=== PATIENT | female | born 1985 | race Caucasian/White ===

== ENCOUNTER 2017-05-02 04:02 | Emergency (ER) | payer OTHER ==
[~2017-05-02] VITALS: Ht 167.6 cm; Wt 61.2 kg
[~2017-05-02 04:02] MED LIST: BIRTH CONTROL; CYCL10 PO; HYDACE5 PO; IBUP600 PO; MULVITMIND PO
== END 2017-05-02 06:20 | disposition home or self-care (01) ==
LOC: ER 04:02
DX: T74.21XA Adult sexual abuse, confirmed, initial encounter (principal); F17.210 Nicotine dependence, cigarettes, uncomplicated
CPT/HCPCS: 96372; 99285; J0696

== ENCOUNTER → 2019-03-10 | Outpatient (CLI) | payer BC ==
[2019-03-11 19:06] LABS: CHLAMYDIA TRACHOMATIS, NAA Negative (Negative); NEISSERIA GONORRHOEAE, NAA Negative (Negative)
[2019-03-14 16:06] LABS: HPV 16 Negative (Negative); HPV 18 Negative (Negative); HPV OTHER HR TYPES Negative (Negative)
== END ==
LOC: LAB SHORT 10:13 → LAB 10:13
PROVIDERS: Registered Nurse Community Health
DX: Z36.89 Encounter for other specified antenatal screening (principal)
CPT/HCPCS: 87491; 87591; 87624; G0123

== ENCOUNTER 2019-09-25 13:06 | Inpatient (IN) | payer BC, OTHER ==
[~2019-09-25] VITALS: Ht 170.2 cm; Wt 90.0 kg
[2019-09-25] MEDS ORDERED: BUSP5 PO (17:10)
[2019-09-25] MEDS ORDERED: PRENATAL TABLE1 EAC2 PO (17:10)
[2019-09-25 17:55] LABS: BASOPHILS ABSOLUTE AUTO 0.04 K/mm3 (0.00-0.23); BASOPHILS PERCENT AUTO 0 % (0-2); EOSINOPHILS ABSOLUTE AUTO 0.01 K/mm3 (0.00-0.68); EOSINOPHILS PERCENT AUTO 0 % (0-6); Hematocrit 34.7 % (33.0-51.0); Hemoglobin 12.1 g/dL (11.5-16.0); IMMATURE GRAN ABSOLUTE AUTO 0.13 K/mm3 (0.00-0.10); IMMATURE GRAN PERCENT AUTO 1 % (0-1); LYMPHOCYTES ABSOLUTE AUTO 0.96 K/mm3 (0.84-5.20); LYMPHOCYTES PERCENT AUTO 7 % (21-46); MONOCYTES ABSOLUTE AUTO 0.37 K/mm3 (0.16-1.47); MONOCYTES PERCENT AUTO 3 % (4-13); Mean Corpuscular HGB 31.1 pg (26.0-34.0); Mean Corpuscular HGB Conc 34.9 g/dL (31.5-36.5); Mean Corpuscular Volume 89 fL (80-100); Mean Platelet Volume 10.1 fL (9.1-12.4); NEUTROPHILS ABSOLUTE AUTO 12.98 K/mm3 (1.96-9.15); NEUTROPHILS PERCENT AUTO 90 % (41-73); Platelet Count 173 K/mm3 (150-400); RDW Coefficient Variation 12.4 % (11.7-14.2); RDW Standard Deviation 40.1 fL (35.1-46.3); Red Blood Cell Count 3.89 M/mm3 (3.80-5.20); White Blood Cell Count 14.49 K/mm3 (4.00-11.30)
--- NOTE | 2019-09-26 00:03 | NUR ---
RT ON STANDBY FOR , BABY BORN WITH STRONG CRY, NO RESP DISTRESS. RT DISMISSED BY MARILEE QUILES.
[2019-09-26 05:30] LABS: BASOPHILS ABSOLUTE AUTO 0.02 K/mm3 (0.00-0.23); BASOPHILS PERCENT AUTO 0 % (0-2); EOSINOPHILS ABSOLUTE AUTO 0.01 K/mm3 (0.00-0.68); EOSINOPHILS PERCENT AUTO 0 % (0-6); Hematocrit 29.9 % (33.0-51.0); Hemoglobin 10.1 g/dL (11.5-16.0); IMMATURE GRAN ABSOLUTE AUTO 0.14 K/mm3 (0.00-0.10); IMMATURE GRAN PERCENT AUTO 1 % (0-1); LYMPHOCYTES ABSOLUTE AUTO 1.31 K/mm3 (0.84-5.20); LYMPHOCYTES PERCENT AUTO 8 % (21-46); MONOCYTES ABSOLUTE AUTO 0.82 K/mm3 (0.16-1.47); MONOCYTES PERCENT AUTO 5 % (4-13); Mean Corpuscular HGB 30.7 pg (26.0-34.0); Mean Corpuscular HGB Conc 33.8 g/dL (31.5-36.5); Mean Corpuscular Volume 91 fL (80-100); Mean Platelet Volume 10.4 fL (9.1-12.4); NEUTROPHILS ABSOLUTE AUTO 15.14 K/mm3 (1.96-9.15); NEUTROPHILS PERCENT AUTO 87 % (41-73); Platelet Count 184 K/mm3 (150-400); RDW Coefficient Variation 12.3 % (11.7-14.2); RDW Standard Deviation 40.8 fL (35.1-46.3); Red Blood Cell Count 3.29 M/mm3 (3.80-5.20); White Blood Cell Count 17.44 K/mm3 (4.00-11.30)
--- NOTE | 2019-09-26 12:47 | NUR ---
RN ROUNDED TO HELP W/ . NB NOT QUITE 12 HOURS OLD. NB IS NOT SHOWING ANY INTEREST IN LATCHING. INSTRUCT/DEMO CORRECT POSITIONING AND LATCHING, AND NIPPLE SHAPE AFTER FEEDS. RIGHT BREAST VERY FLAT AND W/ U-HOLD NIPPLE RETRACT, TEACUP HOLD SLIGHTLY BETTER TO HELP GET TISSUE INTO NB MOUTH. LEFT BREAST MORE ERECT, DOES RETRACT SOME W/ U-HOLD. PT HAS SHIELD AT BEDSIDE AND HAS BEEN USING. FURTHER SUPPORT OFFERED, WILL ATTEMPT TO ROUND AGAIN TONIGHT OR IN THE MORNING. FOB BRINGING IN PUMP TO HELP STIMULATE MILK IN AND HELP TO ERECT NIPPLES MORE.
--- NOTE | 2019-09-27 09:32 | NUR ---
ASSUMED CARE CARING FOR SELF AND NB INDEPENDENTLY, DENIES NEED FOR PAIN MEDICATION, PLAN FOR DISCHARGE HOME TODAY PATURNITY PAPER SIGNED AT THIS TIME
--- NOTE | 2019-09-27 09:34 | NUR ---
REVIEWED DISCHARGE FOLDER WITH PT AND SO
--- NOTE | 2019-09-27 10:46 | NUR ---
DISCHARGE TO HOME WITH NB
== END 2019-09-27 10:45 | disposition home or self-care (01) | DRG 807 ==
LOC: BC 13:06 → OBS 13:06 → BC 13:07 → OBS 16:43 → BC 16:44
PROVIDERS: ADMIT Registered Nurse Community Health
PROC: 10E0XZZ Delivery of Products of Conception, External Approach (ICD-10-PCS; principal; 2019-09-26)
PROC: 0KQM0ZZ Repair Perineum Muscle, Open Approach (ICD-10-PCS; 2019-09-26)
PROC: 3E0R3BZ Introduction of Anesthetic Agent into Spinal Canal, Percutaneous Approach (ICD-10-PCS; 2019-09-26)
PROC: 00HU33Z Insertion of Infusion Device into Spinal Canal, Percutaneous Approach (ICD-10-PCS; 2019-09-26)
DX: O69.81X0 Labor and delivery complicated by cord around neck, without compression, not applicable or unspecified (principal); Z37.0 Single live birth; O70.1 Second degree perineal laceration during delivery; Z3A.39 39 weeks gestation of pregnancy
CPT/HCPCS: 36415; 51702; 59025; 81003; 85025; 86850; 86900; 86901; J1885; J2001; J2210; J2590; J3010; J7120

== ENCOUNTER → 2023-09-07 | Outpatient (CLI) | payer BC, OTHER ==
[~2023-09-07] MED LIST changes: +BUSP5 PO; +PRENATAL TABLE1 EAC2 PO
== END ==
LOC: LAB 07:37 → LAB SHORT 07:37
DX: D48.5 Neoplasm of uncertain behavior of skin (principal)
CPT/HCPCS: 88305

== ENCOUNTER → 2024-10-19 | Outpatient (CLI) | payer BC | LOC: LAB 15:40 → LAB SHORT 15:40 | PROVIDERS: Family Medicine | DX: Z12.4 Encounter for screening for malignant neoplasm of cervix (principal) | CPT/HCPCS: 87624; G0145 ==